=== PATIENT | female | born 1985 | race Caucasian/White ===

== ENCOUNTER 2023-02-07 09:34 | Emergency (ER) | payer OTHER, SELFPAY ==
[2023-02-07 09:49] VITALS: BP 153/79; PULSE 97; RESP 18; TEMP 36.8; O2SAT 100
--- NOTE | 2023-02-07 11:09 | ED.URI ---
HPI - URI/Sore Throat General Chief Complaint: Upper Respiratory Infection Stated Complaint: covid symptoms Time Seen by Provider: 02/07/23 11:00 Source: patient and RN notes reviewed Mode of arrival: ambulatory Limitations: no limitations History of Present Illness HPI Narrative: Patient presents today complaining of fever up to 102, body aches, headache, sore throat since yesterday. [id number] was recently diagnosed with COVID-19, and they live together. Patient has been taking Tylenol and cold and flu medication with some relief of symptoms. Patient smokes 0.5 packs per day. Related Data Allergies Allergy/AdvReac Type Severity Reaction Status Date / Time codeine Allergy Unknown Swelling Unverified 10/29/18 20:37 Review of Systems Review of Systems: CONSTITUTIONAL: Denies chills, or sweats.+ body aches, fever EYES: Denies visual changes, redness, or discharge. ENT: Denies rhinorrhea, congestion, or otalgia.+ sore throat CARDIOVASCULAR: Denies chest pain, palpitations, or edema. RESPIRATORY: Denies cough or dyspnea. GASTROINTESTINAL: Denies abdominal pain, nausea, vomiting, or diarrhea. GENITOURINARY: Denies dysuria or hematuria. SKIN: Denies rash, itching, or wounds. MUSCULOSKELETAL: Denies back pain, joint pain, or myalgia. NEUROLOGIC: Denies numbness, tingling, or weakness.+ headache PSYCH: Denies depression or anxiety. [facility] Social History Social History (Updated 02/07/23 @ 11:11 by Radha Gomez, [facility], ) Smoking packs per day: 0.5 Smoking cigarettes per day: 10.0 Smoking status: Current every day smoker Comments At time of signature, I have reviewed and agree with nursing past medical, surgical, social and family history unless otherwise noted. Please see nursing chart for further information. There is no relevant family history pertinent to the presenting complaint Exam Narrative: GENERAL: Mildly ill-appearing, well-nourished, and in no acute distress. HEAD: Normocephalic, atraumatic. EYES: EOMI. No redness or drainage. Conjunctivae normal. ENT: Mucous membranes pink and moist. Nares clear. No rhinorrhea. TMs normal bilaterally. Throat mildly erythematous without edema or exudate. Uvula midline. NECK: Normal AROM. Supple. No lymphadenopathy. CHEST: No respiratory distress. Clear to auscultation. HEART: Regular rate and rhythm. No murmur appreciated. EXTREMITIES: Normal range of motion. No edema. SKIN: Warm, dry, no rash. Capillary refill normal. Normal skin turgor. NEURO: No focal deficits. Alert and oriented x3. Gait steady. PSYCH: Normal affect. No signs of depression or anxiety. Course Course Level of Care: Express Care Visit Vital Signs Vital signs: Vital Signs Temperature 98.3 F 02/07/23 09:49 Pulse Rate 97 02/07/23 09:49 Respiratory Rate 18 02/07/23 09:49 Blood Pressure 153/79 H 02/07/23 09:49 Pulse Oximetry 100 02/07/23 09:49 Oxygen Delivery Room Air 02/07/23 09:49 Temperature 98.3 F 02/07/23 09:49 Pulse Rate 97 02/07/23 09:49 Respiratory Rate 18 02/07/23 09:49 Blood Pressure 153/79 H 02/07/23 09:49 Pulse Oximetry 100 02/07/23 09:49 Oxygen Delivery Room Air 02/07/23 09:49 Reviewed. Pt has been instructed to follow up with her PCP regarding her elevated blood pressure today. MDM - URI/Sore Throat MDM Narrative Medical decision making narrative: Testing negative. Instructed patient to retest herself for COVID home tomorrow afternoon as this may be more accurate than today's testing. Discussed [id number] treatment for symptoms as a are likely viral in etiology. Patient agrees with plan. Anticipatory guidance given Differential Diagnosis Differential diagnosis: Likely upper respiratory infection, viral infection, influenza, pharyngitis and other (COVID-19, strep throat) Lab Data Attestation: I reviewed the patient's lab results. Labs: Lab Results 02/07/23 Range/Units 10:11 POC SARS CoV-2
== END 2023-02-07 11:16 | disposition home or self-care (01) ==
PROVIDERS: Emergency Provider Nurse Practitioner
DX: J06.9 Acute upper respiratory infection, unspecified (principal); F17.210 Nicotine dependence, cigarettes, uncomplicated; Z20.822 Contact with and (suspected) exposure to COVID-19
CPT/HCPCS: 87081; 87426; 87804; 87880; 99213; C9803; G0463